=== PATIENT | female | born 1965 | race African-American/Black ===

== ENCOUNTER 2017-01-25 18:11 | Emergency (ER) | payer OTHER ==
[~2017-01-25] VITALS: Ht 165.1 cm; Wt 79.4 kg
[~2017-01-25 18:11] MED LIST: ADVAIRDISKUS; ALBUTEROL INH; CHLORZOXAZONE500 MG PO; CLARITIN-D 24 H1 TAB PO; COUMADIN 5 MG TA5 M1 PO; EPIPEN0.3 MG/0.3 IM; LASIX 40 MG TAB40 M1 PO; LIDODERM 5%1 PATCH TOP; NEURONTIN 400400 M1 PO; NORCO 5-325 TA1 EACH PO; OMEPRAZOLE; PERCOCET 5-3251 EACH PO; POTASSIUM20 PO; PREDNISONE 10 M10 M1 PO; PREDNISONE50 MG PO; PRILOSEC40 MG PO; ROBAXIN 750 MG750 MG PO; SYMBICORT160 MCG/4. INH; TRAMADOL; VALIUM5 MG PO; XOPENEX0.31 MG/3 IH; ZOFRAN 4 MG ORAL4 M1 DIS; ZOFRAN4 MG PO
[2017-01-25 18:16] VITALS: BP 147/88
[2017-01-25] MEDS ORDERED: RISPERDAL 1 MG T1 MG PO (18:30)
[2017-01-25] MEDS ORDERED: TRAZODONE HCL50 MG PO (18:30)
[2017-01-25] MEDS ORDERED: COUMADIN7.5 MG PO (18:31)
[2017-01-25] MEDS ORDERED: COUMADIN 5 MG TA5 M1 PO (18:32)
== END 2017-01-25 19:54 | disposition left against medical advice (07) ==
LOC: ER 18:11
DX: Z53.21 Procedure and treatment not carried out due to patient leaving prior to being seen by health care provider (principal)

== ENCOUNTER → 2018-01-24 | Outpatient (CLI) | payer OTHER ==
[~2018-01-24] MED LIST changes: +COUMADIN7.5 MG PO; +EPIPEN 2-P0.3 MG/0.3 IM; +PEPCID40 MG PO; +PREDNISONE 20 M20 MG PO; +RISPERDAL 1 MG T1 MG PO; +TRAZODONE HCL50 MG PO; +ZYRTEC10 M5 PO
== END ==
LOC: RAD 07:28
DX: M50.123 Cervical disc disorder at C6-C7 level with radiculopathy (principal); M43.22 Fusion of spine, cervical region; M50.30 Other cervical disc degeneration, unspecified cervical region